=== PATIENT | female | born 1940 | race Caucasian/White ===

== ENCOUNTER 2017-04-05 12:39 | Emergency (ER) | payer MEDICARE ==
[~2017-04-05 12:39] MED LIST: Iopamidol 370 76% 100 ML VIAL ONE
[2017-04-05 13:17] LABS: #Basophils 0.1 thou/uL (0.0-0.2); #Eosinphils 0.5 thou/uL (0.0-0.7); #Lymphocytes 0.9 thou/uL (1.20-3.40); #Monocytes 0.9 thou/uL (0.11-0.59); #Neutrophils 6.4 thou/uL (1.40-6.50); %Basophils 1.4 % (0.0-1.0); %Eosinophils 5.8 % (0.0-10.0); %Lymphocytes 10.2 % (21.0-51.0); %Monocytes 10.7 % (0.0-10.0); Hematocrit 35.4 % (36.0-47.0); Mean Platelet Volume 4.9 fL (7.4-10.4); Red Blood Cell (RBC) Count 4.08 mill/uL (4.20-5.40); White Blood Cell (WBC) Count 8.9 thou/uL (4.8-10.8)
[2017-04-05 13:26] LABS: Prothrombin Time 14.5 SEC (12.0-14.7)
[2017-04-05 13:27] LABS: Lactic Acid - Sepsis 0.9 mmol/L (0.5-2.2)
[2017-04-05 13:34] LABS: ALT (SGPT) 30 U/L (8-55); AST (SGOT) 37 U/L (5-34); Alkaline Phosphatase 81 U/L (40-150); Anion Gap 15 mmol/L (10-20); BUN (Urea Nitrogen) 32 mg/dL (9.8-20.1); Bilirubin, Total 0.4 mg/dL (0.2-1.2); Calc. Creatinine Clearance 0 mL/min (70-130); Calcium 9.4 mg/dL (7.8-10.44); Carbon Dioxide 23 mmol/L (23-31); Chloride 103 mmol/L (98-107); Estimated GFR-MDRD 56; Globulin 2.9 g/dL (2.4-3.5); Protein, Total 6.3 g/dL (6.0-8.3)
[2017-04-05 13:38] LABS: Troponin I Less than 0.010 ng/mL (< 0.028)
--- NOTE | 2017-04-05 15:47 | CT ---
CTA THORAX WITH CONTRAST: (Computed Tomographic Angiography, chest(noncoronary) with contrast material, and image postprocessin g) (PE protocol) DATE: 04/05/17. HISTORY: A 76-year-old female with chest pain. COMPARISON: None. TECHNIQUE: IV injection of iodinated contrast: 70 mL of Isovue 370. Scan acquisition timing attempted to coincide with iodinated contrast bolus reaching maximal density in pulmonary arteries. 3D MIP reconstructions. FINDINGS: There is a large left pleural effusion that occupies approximately 75% volume of the left hemithoraci c cavity, resulting in total collapse of the left lower lobe, and subsegmental atelectasis of left up per lobe. No evidence of pulmonary thromboembolism. No thoracic aortic aneurysm or dissection. Pro minent calcified granuloma at lateral aspect of the right upper lobe at the mid chest level. No cons olidation, pulmonary edema, or airspace density of the right lung. Mild streaky densities of right p osterior costophrenic angle consistent with subsegmental atelectasis. No right-sided pleural effusio n. No pneumothorax. Liver is enlarged. Hepatic attenuation is heterogeneous, with questionable nut lisbeth pattern which would be suggestive of hepatic venous congestion. There is poor opacification of t he portal vein and its proximal and peripheral branches, but that could be because of the particular stage of scanning, although portal vein thrombosis cannot be excluded. The more proximal portion of the portal vein has normal contrast opacification. No definite splenomegaly. Distortion of the prox imal stomach may represent fundoplication changes. No cardiomegaly. IMPRESSION: 1. Large left pleural effusion. 2. Associated total atelectasis of left lower lobe and partial atelectasis of left upper lobe. 3. Status post fundoplication of the proximal stomach. 4. Hepatomegaly and questionable hepatic venous congestion. See above comments. 5. No pulmonary thromboembolism. derrick[] POS: [place]
== END 2017-04-05 18:23 | disposition short-term general hospital (02) ==
LOC: SCSER 12:39
DX: J90 Pleural effusion, not elsewhere classified (principal); E11.9 Type 2 diabetes mellitus without complications; E78.5 Hyperlipidemia, unspecified; I10 Essential (primary) hypertension
CPT/HCPCS: 71275; 80053; 82553; 83605; 84484; 85025; 85610; 93005; 96360; 96361